=== PATIENT | female | born 1965 | race Caucasian/White ===

== ENCOUNTER → 2016-03-09 | Outpatient (CLI) | payer BC ==
[~2016-03-09] MED LIST: ALBUAER19 INH; ATOR10TA88 PO; BUPRTAB51 PO; CLX40 PO; FEXO1TAB58 PO; GLC/500 PO; LEVO112T2 PO; LOSA100T2 PO; NXM/40 PO
[2016-03-09 10:12] LABS: ESTIMATED AVERAGE GLUCOSE 105 mg/dl; HA1C FLAG Normal (Normal)
[2016-03-09 10:14] LABS: ALT/SGPT 24 U/L (12-78); AST/SGOT 11 U/L (15-37); BLOOD UREA NITROGEN 16 mg/dl (7-18); BUN/CREATININE RATIO 20.5 (10-20); CALCIUM 8.5 mg/dl (8.5-10.1); CARBON DIOXIDE 23 mmol/L (21-32); CHLORIDE 106 mmol/L (98-107); GLUCOSE 103 mg/dl (70-99); POTASSIUM 3.6 mmol/L (3.5-5.1); SODIUM 140 mmol/L (136-145)
[2016-03-09 10:28] LABS: ALB/GLOB RATIO 0.9 (0.9-2); ALKALINE PHOSPHATASE 61 U/L (45-117); CHOLESTEROL 146 mg/dl (0-200); CHOLESTEROL/HDL RATIO 2.5; HDL CHOLESTEROL 59 mg/dl; LDL CHOLESTEROL CALCULATED 71 mg/dl; THYROID STIMULATING HORMONE 0.577 uIu/ml (0.300-4.500); TRIGLYCERIDES 80 mg/dl (0-150); VERY LOW DENSITY LIPOPROT CALC 16 mg/dl
[2016-03-09 11:00] LABS: RATIO 24.8 mcg/mg (0-30.0)
== END | disposition home or self-care (01) ==
LOC: C.LAB1850 07:45
PROVIDERS: ATTEND Internal Medicine
DX: E11.9 Type 2 diabetes mellitus without complications (principal); E89.0 Postprocedural hypothyroidism

== ENCOUNTER → 2016-09-06 | Outpatient (CLI) | payer BC ==
[2016-09-06 10:20] LABS: ESTIMATED AVERAGE GLUCOSE 108 mg/dl; HA1C FLAG Normal (Normal)
[2016-09-06 12:34] LABS: AST/SGOT 9 U/L (15-37); BLOOD UREA NITROGEN 12 mg/dl (7-18); BUN/CREATININE RATIO 13.6 (10-20); CALCIUM 9.5 mg/dl (8.5-10.1); CARBON DIOXIDE 30 mmol/L (21-32); CHLORIDE 106 mmol/L (98-107); CREATININE 0.91 mg/dl (0.60-1.20); GLUCOSE 75 mg/dl (70-99); POTASSIUM 3.5 mmol/L (3.5-5.1); SODIUM 142 mmol/L (136-145)
[2016-09-06 12:45] LABS: ALB/GLOB RATIO 0.9 (0.9-2); ALKALINE PHOSPHATASE 73 U/L (45-117); ALT/SGPT 21 U/L (12-78); THYROID STIMULATING HORMONE 0.841 uIu/ml (0.300-4.500)
== END | disposition home or self-care (01) ==
LOC: C.LAB1850 09:00
PROVIDERS: ATTEND Internal Medicine
DX: E11.9 Type 2 diabetes mellitus without complications (principal); E89.0 Postprocedural hypothyroidism

== ENCOUNTER → 2016-10-24 | Outpatient (CLI) | payer BC | END | disposition home or self-care (01) | LOC: C.PAPS 08:44 | PROVIDERS: ATTEND Obstetrics & Gynecology | DX: Z01.419 Encounter for gynecological examination (general) (routine) without abnormal findings (principal) ==

== ENCOUNTER → 2016-12-20 | Outpatient (CLI) | payer BC ==
--- NOTE | 2016-12-21 14:32 | MAMMOGRAPHY REPORT ---
BILATERAL DIGITAL SCREENING MAMMOGRAM TOMOSYNTHESIS WITH CAD: 12/20/2016 CLINICAL HISTORY: Routine screening. TECHNIQUE: Breast tomosynthesis in addition to standard 2D mammography was performed. Current study was also evaluated with a Computer Aided Detection (CAD) system. COMPARISON: Comparison is made to exams dated: 12/17/2015 mammogram, 12/14/2014 mammogram, 4 mammogram, 12/09/2012 mammogram, 12/12/2011 mammogram, and 12/06/2011 mammogram - [facility]. BREAST COMPOSITION: There are scattered areas of fibroglandular density in both breasts. FINDINGS: There are stable focal asymmetries in each upper outer quadrant, which appear similar on a ll available prior mammograms dating back to at least 11/13/2007, therefore likely benign. No suspic ious spiculated or irregular mass, architectural distortion or cluster of microcalcifications is seen . IMPRESSION: ACR BI-RADS CATEGORY 1: NEGATIVE There is no mammographic evidence of malignancy. A 1 year screening mammogram is recommended. The pa tient will receive written notification of the results. Approximately 10% of breast cancers are not detected with mammography. A negative mammographic report should not delay biopsy if a clinically suggestive mass is present. Sharyn Mcgarry M.D. ay/:12/20/2016 16:44:36 Quality Eng: Joce EM(R)(M), [facility] letter sent: Normal 1/2 BI-RADS Code: ACR BI-RADS Category 1: Negative
== END | disposition home or self-care (01) ==
LOC: C.MAMM 08:08
PROVIDERS: ATTEND Internal Medicine
DX: Z12.31 Encounter for screening mammogram for malignant neoplasm of breast (principal)

== ENCOUNTER → 2017-03-09 | Outpatient (CLI) | payer BC ==
[~2017-03-09] MED LIST changes: +ATOR10TA82 PO; -ATOR10TA88 PO
[2017-03-09 12:13] LABS: BASO % 0.4 %; BASO ABS # 0.02 K/uL (0-0.2); EOS % 2.1 %; EOS ABS # 0.11 K/uL (0-0.5); HEMATOCRIT 38.5 % (37-47); HEMOGLOBIN 13.2 g/dL (12.0-16.0); IG# 0.02 K/uL (0.00-0.02); LYMPH % 36.4 %; LYMPH ABS # 1.87 K/uL (1.2-3.4); MEAN CELL VOLUME 85.9 fL (80-100); MEAN CORPUSCULAR HEMOGLOBIN 29.5 pg (25-34); MEAN CORPUSCULAR HGB CONC 34.3 g/dl (32-36); MEAN PLATELET VOLUME 8.9 fL (7.4-10.4); MONO % 5.3 %; MONO ABS # 0.27 K/uL (0.11-0.59); NEUT % 55.4 %; NEUT ABS # 2.85 K/uL (1.4-6.5); PLATELET COUNT 282 K/uL (130-400); RED CELL DISTRIBUTION WIDTH CV 13.5 % (11.5-14.5); RED CELL DISTRIBUTION WIDTH SD 42.3 fL (36.4-46.3); WHITE BLOOD COUNT 5.14 K/uL (4.8-10.8)
[2017-03-09 12:28] LABS: HEMOGLOBIN A1C 5.5 % (4.5-5.6)
[2017-03-09 12:47] LABS: ALBUMIN 3.8 gm/dl (3.4-5.0); ALT/SGPT 44 U/L (12-78); AST/SGOT 78 U/L (15-37); BLOOD UREA NITROGEN 13 mg/dl (7-18); CALCIUM 8.8 mg/dl (8.5-10.1); CARBON DIOXIDE 30 mmol/L (21-32); CHOLESTEROL 170 mg/dl (0-200); CREATININE 0.88 mg/dl (0.60-1.20); GLUCOSE 79 mg/dl (70-99); POTASSIUM 3.1 mmol/L (3.5-5.1); SODIUM 138 mmol/L (136-145)
[2017-03-09 12:58] LABS: ALKALINE PHOSPHATASE 74 U/L (45-117); LDL CHOLESTEROL CALCULATED 70 mg/dl; TOTAL PROTEIN 7.6 gm/dl (6.4-8.2)
== END | disposition home or self-care (01) ==
LOC: C.LAB1850 11:08
PROVIDERS: ATTEND Internal Medicine
DX: E11.9 Type 2 diabetes mellitus without complications (principal); E78.5 Hyperlipidemia, unspecified; I10 Essential (primary) hypertension; E01.2 Iodine-deficiency related (endemic) goiter, unspecified

== ENCOUNTER → 2017-03-30 | Outpatient (CLI) | payer BC ==
[2017-03-30 09:49] LABS: BLOOD UREA NITROGEN 17 mg/dl (7-18); CALCIUM 8.8 mg/dl (8.5-10.1); CARBON DIOXIDE 29 mmol/L (21-32); CREATININE 0.93 mg/dl (0.60-1.20); GLUCOSE 93 mg/dl (70-99); POTASSIUM 3.7 mmol/L (3.5-5.1); SODIUM 137 mmol/L (136-145)
== END | disposition home or self-care (01) ==
LOC: C.LAB1850 08:01
PROVIDERS: ATTEND Internal Medicine
DX: E87.6 Hypokalemia (principal)